=== PATIENT | male | born 1965 | race Caucasian/White ===

== ENCOUNTER 2024-10-12 10:36 | Emergency (ER) | payer OTHER, SELFPAY ==
[2024-10-12 10:49] VITALS: BP 142/92; PULSE 76; RESP 22; TEMP 36.3; O2SAT 96
--- NOTE | 2024-10-12 10:55 | CRLHL7_ITS ---
For Patients: As a result of the Cures Act, medical imaging exams and procedure reports are released immediately into your electronic medical record. You may view this report before your referring provider. If you have questions, please contact your health care provider. Indication: Cut tip of left middle finger with a saw Technique: Three views left 3rd digit Comparison: None Findings/Impression: Amputation of the majority of the tuft of the left 3rd digit as well as amputation of the medial aspect of the soft tissues of the left 3rd digit tuft. Fracture plane extends near the articular surface although not clearly involving the DIP joint. Debris near the skin surface. Dictated by Mazin Hodges MD @ 10/12/2024 12:25:38 PM (Electronically Signed)
--- OUTSIDE RECORDS SUMMARY | 2024-10-12 11:41 | XMS_ITS | Encounter Summary ---
[facility] Organization [facility] Address [address] [place] [address] Care Team Providers Care Garnett Mechanic Name Role Phone Greg Tinoco MD Primary Care Provider +1 [phone] Encounter Details Date Type Department Care Team (Late st Contact Info) Description 03/12/2017 Correspondence [facility] Radiology [address] [place] [address] Radiology, Provider MRI SAFETY SHEET AND COMPATIBILITY FORM Social History Tobacco Use Types Packs/Day Years Used Date Smoking Tobacco: Never Smokeless Tobacco: Never Alcohol Use Standard Drinks/Week Comments No 0 (1 standard drink = 0.6 oz pur e alcohol) Sex and Gender Information Value Date Recorded Sex Assigned at Not on file Legal Sex Male 4:08 AM CDT Gender Identity Not on file Sexual Orientation Not on file 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 Not on file Not on file documented as of this encounter Plan of Treatment Upcoming Encounters Date Type Department Care Team (Late st Contact Info) Description 04/19/2025 8:50 AM ASSISTANT WOMEN'S SOCCER COACH Appointment [facility] [place] [address] [place] [phone] Latonia Santos, [facility] [address] [place], [place] [phone] documented as of this encounter Visit Diagnoses Not on filedocumented in this encounter Additional Health Concerns Infection Onset Date Last Indicated Resolved Time R/O COVID19 04/07/2022 04/07/2022 04/07/2022 4:01 PM ASSISTANT WOMEN'S SOCCER COACH documented as of this encounter Care Teams Garnett Mechanic Relationship Specialty Start Date End Date Greg Tinoco MD [address] [place] [address] PCP - General Internal Medicine 12/07/16 documented as of this encounter
--- NOTE | 2024-10-12 11:42 | ED.UPPEXIN ---
HPI - Extremity Injury (Upper) General Date Seen: 10/12/24 Chief Complaint: Extremity Pain/Injury, Upper Stated Complaint: Lost 1/2 finger tip Time Seen by Provider: 10/12/24 10:55 Source: patient Mode of arrival: ambulatory Limitations: no limitations History of Present Illness HPI narrative: Patient is a 60-year-old male presenting to the emergency department for an injury to his right distal middle finger. He states he was using a rotary saw when it caught his finger. This happened shortly prior to arrival. States he has a baseline tremor to that hand. Denies any other injuries. Is in quite a bit of pain at this time. Is having difficulty relaxing. Is not on any blood thinners. Related Data Home Medications ?Medication ?Instructions ?Recorded ?Confirmed evolocumab 140 mg/mL subcutaneous mg subcut 10/12/24 10/12/24 pen injector (Pete Atkins) fluticasone propionate 50 intranasal 10/12/24 10/12/24 mcg/actuation nasal spray,suspension losartan 50 mg tablet 50 mg PO BID 10/12/24 10/12/24 pantoprazole 40 mg tablet,delayed 40 mg PO DAILY 10/12/24 10/12/24 release pantoprazole in 0.9% sod chlor IV 10/12/24 sildenafil (pulm.hypertension) 20 20 mg PO DAILY 10/12/24 10/12/24 mg tablet Previous Rx's ?Medication ?Instructions ?Recorded cephalexin 500 mg capsule 500 mg PO QID #20 caps 10/12/24 oxycodone 5 mg tablet 5 mg PO Q6H PRN pain #12 tabs 10/12/24 Allergies Allergy/AdvReac Type Severity Reaction Status Date / Time simvastatin AdvReac pain Verified 10/12/24 10:59 Review of Systems Narrative: Pertinent systems reviewed and were negative unless stated in HPI PFSH PFSH Medical History (Updated 10/12/24 @ 12:58 by Deepak Ricks DO) Traumatic brain injury ?S06.9XAA - Unspecified intracranial injury with loss of consciousness status unknown, initial encounter (ICD-10) Degenerative disc disease Lumbar radiculopathy ?M54.16 - Radiculopathy, lumbar region (ICD-10) Dilated cardiomyopathy ?I42.0 - Dilated cardiomyopathy (ICD-10) Atherosclerosis ?I70.90 - Unspecified atherosclerosis (ICD-10) Pseudophakia ?Z96.1 - Presence of intraocular lens (ICD-10) Glaucoma ?H40.9 - Unspecified glaucoma (ICD-10) 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 - Epithelial (juvenile) corneal dystrophy, unspecified eye (ICD-10) PVD (posterior vitreous detachment), right eye ?H43.811 - Vitreous degeneration, right eye (ICD-10) Macular pucker ?H35.379 - Puckering of macula, unspecified eye (ICD-10) Nuclear sclerosis ?H25.10 - Age-related nuclear cataract, unspecified eye (ICD-10) Myotonic dystrophy, 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 - Myotonic muscular dystrophy (ICD-10) Obstructive sleep apnea ?G47.33 - Obstructive sleep apnea (adult) (pediatric) (ICD-10) Hyperlipidemia ?E78.5 - Hyperlipidemia, unspecified (ICD-10) Acid reflux ?K21.9 - Gastro-esophageal reflux disease without esophagitis (ICD-10) Surgical History (Updated 10/12/24 @ 12:58 by Lazara Acevedo ~ TIP BANDING MACHINE OPERATOR, TIP BANDING MACHINE OPERATOR) Cataract ?H26.9 - Unspecified cataract (ICD-10) History of appendectomy ?Z90.49 - Acquired absence of other specified parts of digestive tract (ICD-10) H/O spinal fusion ?Z98.1 - Arthrodesis status (ICD-10) Exam Narrative: Exam Narrative: Const: Well-nourished, Well-developed, in moderate distress Eyes: PERRL, no conjunctival injection, and symmetrical lids HENT: Atraumatic external nose and ears. Moist mucous membranes. MSK:Extremities w/o deformity, Normal Active ROM Skin: Large amount of avulsed skin and soft tissue clearly seen to the distal right 3rd finger. Unable to clearly see of any bone is involved. Neuro: Normal Muscle tone, No focal neurological deficits. Psych: Awake, Alert, & Oriented x3. Appropriate mood and affect. Const: Vital Signs, click to edit/add: Vital Signs - 24 hr 10/12/24 10:49 Temperature 97.4 F L Pulse Rate [Pulse Oximeter] 76 Respiratory Rate 22 Blood Pressure [Ri ght Upper Arm] 142/92 H Pulse Oximetry 96 Oxygen Delivery Me thod Room Air Course Vital Signs Vital signs: Initial Vital Signs Temperature 97.4 F L 10/12/24 10:49 Temperature Source Temporal Artery Scan 10/12/24 10:49 Pulse Rate 76 10/12/24 10:49 Pulse Rhythm Regular 10/12/24 10:49 Respiratory Rate 22 10/12/24 10:49 Blood Pressure 142/92 H 10/12/24 10:49 Blood Pressure Mean 108 H 10/12/24 10:49 Blood Pressure Position Sitting 10/12/24 10:49 Pulse Oximetry 96 10/12/24 10:49 Oxygen Delivery Method Room Air 10/12/24 10:49 Vital Signs Temperature 97.4 F L 10/12/24 10:49 Pulse Rate 76 10/12/24 10:49 Respiratory Rate 22 10/12/24 10:49 Blood Pressure 142/92 H 10/12/24 10:49 Pulse Oximetry 96 10/12/24 10:49 Oxygen Delivery Method Room Air 10/12/24 10:49 Temperature 97.4 F L 10/12/24 10:49 Pulse Rate 76 10/12/24 10:49 Respiratory Rate 22 10/12/24 10:49 Blood Pressure 142/92 H 10/12/24 10:49 Pulse Oximetry 96 10/12/24 10:49 Oxygen Delivery Method Room Air 10/12/24 10:49 Medications Administered Medications: Discontinued Medications Generic Name Dose Route Start Last Admin Trade Name Freq PRN Reason Stop Dose Admin Cefazolin Sodium 2 gm 10/12/24 11:33 10/12/24 12:05 Cefazolin 1 Gm Inj IVP 10/12/24 11:34 2 gm ONCE ONE Administration Diphtheria/Tetanus/Acell Pertussis 0.5 ml 10/12/24 11:49 10/12/24 12:47 Tetanus/Diphth/Pertussis 0.5 Ml Syringe IM 10/12/24 11:50 0.5 ml .ONCE ONE Administration MDM - Extremity Injury (Upper) MDM Narrative Medical decision making narrative: Patient is a 59-year-old male presenting for an injury to his right distal phalanx of his 3rd finger. On physical exam I cannot say for certain if there is bone involvement but due to the amount of soft tissue removed it is most likely involving the bone. I will do a digital nerve block to help with his pain. Use combination of lidocaine and benzocaine. I did speak to orthopedics who came to evaluate the patient. At this time patient does not want surgery months see if he can safely finger so patient will follow-up outpatient. Was recommended to place a big bulky dressing on with xeroform or other not adhesive dressing. He will follow-up in a couple days with Orthopedics. Will give the patient a dose of Ancef and sent him home with Keflex. Also send him home with oxycodone for pain control Imaging Data Finger x-ray: Attestation: I have reviewed the pertinent imaging results. Radiologist's impression: Amputation of the majority of the tuft of the left 3rd digit as well as amputation of the medial aspect of the soft tissues of the left 3rd digit tuft. Fracture plane extends near the articular surface although not clearly involving the DIP joint. Debris near the skin surface. Dictated by Mazin Hodges MD @ 10/12/2024 12:25:38 PM Discharge Plan Discharge Clinical Impression: Avulsion of fingertip Patient Disposition: Home, Self-Care Condition: Stable Additional Instructions: Follow up appointment is scheduled at the [facility] on October 13 with a 1:20pm arrival time. If you have any questions or need to reschedule, please call [phone]. [facility] [address] [place] [address] Use Tylenol oxycodone for pain. I recommend this time to schedule the pain medication to stay ahead of the pain. Stay away from NSAIDs as they can increased bleeding. I do also recommend taking the antibiotics as prescribed. Return to emergency department for new or worsening symptoms Prescriptions: New cephalexin 500 mg capsule 500 mg PO QID Qty: 20 0RF oxycodone 5 mg tablet 5 mg PO Q6H PRN (Reason: pain) Qty: 12 0RF No Action losartan 50 mg tablet 50 mg PO BID pantoprazole 40 mg tablet,delayed release (DR/EC) 40 mg PO DAILY fluticasone propionate 50 mcg/actuation spray,suspension intranasal Patient Comments: [NO ORIGINAL SIG] sildenafil (pulm.hypertension) 20 mg tablet 20 mg PO DAILY Repatha SureClick 140 mg/mL pen injector subcut pantoprazole in 0.9% sod chlor IV Follow Up/Referrals: Provider,Not a Local [Primary Care Provider, Family Practice] [facility] Alone [facility]: [facility] Inst[facility]
--- OUTSIDE RECORDS SUMMARY | 2024-10-12 11:42 | XMS_ITS | Encounter Summary ---
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 Not on file Not on file documented as of this encounter Plan of Treatment Upcoming Encounters Date Type Department Care Team (Late st Contact Info) Description 04/19/2025 8:50 AM RENEWALS MANAGER Appointment [facility] Dental [facility] [address] [place] [phone] Latonia Santos, [facility] [address] [place], [place] [phone] documented as of this encounter Visit Diagnoses Not on filedocumented in this encounter Additional Health Concerns Infection Onset Date Last Indicated Resolved Time R/O COVID19 04/07/2022 04/07/2022 04/07/2022 4:01 PM RENEWALS MANAGER documented as of this encounter Care Teams Rebar Bender Relationship Specialty Start Date End Date Greg Tinoco MD [address] [place] [address] PCP - General Internal Medicine 12/07/16 documented as of this encounter
--- OUTSIDE RECORDS SUMMARY | 2024-10-12 11:42 | XMS_ITS | Encounter Summary ---
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 Not on file Not on file documented as of this encounter Plan of Treatment Upcoming Encounters Date Type Department Care Team (Late st Contact Info) Description 04/19/2025 8:50 AM SWIMMING POOL PLASTERER HELPER Appointment [facility] [place] [address] [place] [phone] Latonia aSntos, [facility] [address] [place], [place] [phone] documented as of this encounter Visit Diagnoses Not on filedocumented in this encounter Additional Health Concerns Infection Onset Date Last Indicated Resolved Time R/O COVID19 04/07/2022 04/07/2022 04/07/2022 4:01 PM SWIMMING POOL PLASTERER HELPER documented as of this encounter Care Teams Rag Boiler Relationship Specialty Start Date End Date Greg Tinoco MD [address] [place] [address] PCP - General Internal Medicine 12/07/16 documented as of this encounter
--- OUTSIDE RECORDS SUMMARY | 2024-10-12 11:42 | XMS_ITS | Encounter Summary ---
Author Organization [facility] Address [address] [place] [address] Care Team Providers Care Acetone Recovery Worker Name Role Phone Greg Tinoco MD Primary Care Provider +1 [phone] Encounter Details Date Type Department Care Team (Latest Contact Info) Description 05/10/1995 Orders Only Destin Nowak [facility] [address] [facility], [address] Social History Tobacco Use Types Packs/Day Years Used Date Smoking Tobacco: Never Assessed Sex and Gender Information Value Date Recorded Sex Assigned at Not on file Legal Sex Male 4:08 AM CDT Gender Identity Not on file Sexual Orientation Not on file documented as of this encounter Plan of Treatment Upcoming Encounters Date Type Department Care Team (Late st Contact Info) Description 04/19/2025 8:50 AM FOOD SERVICE LEAD Appointment [facility] Dental [facility] [address] [place] [phone] [facility] [address] [place] [address] documented as of this encounter Visit Diagnoses Not on filedocumented in this encounter Additional Health Concerns Infection Onset Date Last Indicated Resolved Time R/O COVID19 04/07/2022 04/07/2022 04/07/2022 4:01 PM FOOD SERVICE LEAD documented as of this encounter Care Teams Acetone Recovery Worker Relationship Specialty Start Date End Date Greg Tinoco MD [address] [place] [address] PCP - General Internal Medicine 12/07/16 documented as of this encounter
--- OUTSIDE RECORDS SUMMARY | 2024-10-12 11:42 | XMS_ITS | Encounter Summary ---
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 [address] [place], [place] [phone] documented as of this encounter Visit Diagnoses Not on filedocumented in this encounter Additional Health Concerns Infection Onset Date Last Indicated Resolved Time R/O COVID19 04/07/2022 04/07/2022 04/07/2022 4:01 PM CLOSET ORGANIZER documented as of this encounter Care Teams Executive Communications Manager Relationship Specialty Start Date End Date Greg Tinoco MD [address] [place] [address] PCP - General Internal Medicine 12/07/16 documented as of this encounter
--- OUTSIDE RECORDS SUMMARY | 2024-10-12 11:42 | XMS_ITS | Clinical Summary ---
Author Organization [place] Address [address] [place] [address]. [place] [address] Care Team Providers Care Tar Worker Name Role Phone Greg Tinoco MD Primary Care Provider +1 [phone] Allergies No known active allergies Medications aspirin (ASA) 81 MG chewable tablet Take 81 mg by mouth every morning Active losartan (COZAAR) 100 MG tablet Take 100 mg by mouth At Bedtime Active fluticasone (FLONASE) 50 MCG/ACT nasal spray [place] 2 sprays into both nostrils daily Active vitamin D3 (CHOLECALCIFERO L) 2000 units tablet Take 2,000 Units by mouth every morning Active vitamin C (ASCORBIC ACID) 1000 MG TABS Take 1,000 mg by mouth every morning Active Calcium Citrate (CITRACAL OR) Take 2 tablets by mouth every morning Active pantoprazole (PROTONIX) 20 MG EC tablet Take 20 mg by mouth every morning Active oxyCODONE (ROXICODONE) 5 MG tabletIndicatio ns:Degenerative lumbar disc Take 1-2 tablets (5-10 mg) by mouth every 3 hours as needed 40 tablet 08/06/2018 Active Active Problems Problem Noted Date Diagnosed Date Degenerative lumbar disc 08/05/2018 Lumbar radiculopathy 06/13/2018 Dilated cardiomyopathy 05/15/2017 Atherosclerosis of [place] co ronary artery of [place] heart without angina pectoris 08/15/2016 Overview (08/05/2018): Overview: Based on cardiac calcium score >95th%ile Lung nodules 08/15/2016 Overview (08/05/2018): Overview: Right lung, 6 mm found incidentally with CT calcium score. 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 Awaiting calcium score, CV 10 year risk ~12.5% Esophageal reflux 12/22/2004 Immunizations Immunization Administration Dates Next Due Influenza Vaccine 18-64 (Flublok) 08/06/2018() TDAP Vaccine (Adacel) 07/20/2017 Social History Tobacco Use Types Packs/Day Years Used Date Smoking Tobacco: Never Smokeless Tobacco: Never Alcohol Use Standard Drinks/Week Comments No 0 (1 standard drink = 0.6 oz pur e alcohol) AUDIT-C Answer Date Recorded Frequency of Alcohol Consumption Never 08/05/2018 Average Number of Drinks Not on file 019 Frequency of Binge Drinking Not on file 07/12 Sex and Gender Information Value Date Recorded Sex Assigned at Not on file Legal Sex Male 4:16 AM TRAINING PROFESSIONAL Gender Identity Not on file Sexual Orientation Not on file Last Filed Vital Signs Vital Sign Reading Time Taken Comments Blood Pressure 107/52 08/06/2018 11:18 AM CDT Pulse 65 08/05/2018 10:16 PM CDT Temperature 36.9 C (98.5 F) 08/06/2018 11:18 AM CDT Respiratory Rate 16 08/06/2018 11:18 AM CDT Oxygen Saturation 94% 08/06/2018 11:18 AM CDT Inhaled Oxygen Concentration - - Weight 81.2 kg (179 lb) 08/05/2018 9:48 AM CDT Height 182.9 cm (6') 08/05/2018 9:48 AM CDT Body Mass Index 24.28 08/05/2018 9:48 AM CDT Plan of Treatment Not on file Medical Devices Implanted Type Area Outreach Professional Device Identifier Shelf Expiration Date Model / Serial / Lot Graft Bone Infuse Bmp [id number] Implanted:Qty: 1 on 08/05/2018 by Gabriel Rivero MD at [facility] Bone/Tis rustam/Biol ogic N/A: Spine Lumbar [employer] 07/11/2019 [id number] / / [id number] Synfix Evolution Spacer Med/10.5mm6' Implanted:Qty: 1 on 08/05/2018 by Gabriel Rivero MD at [facility] N/A: Spine Lumbar 08/10/2026 [id number] / / [id number] Synfix Evoulution Fine Tip Screw 25mm Implanted:Qty: 1 on 08/05/2018 by Gabriel Rivero MD at [facility] N/A: Spine Lumbar 05/12/2028 [id number] .02S / / [id number] Synfix Evolution Fine Tip Screw 25mm Implanted:Qty: 1 on 08/05/2018 by Gabriel Rivero MD at [facility] N/A: Spine Lumbar 05/12/2028 [id number] .02S / / [id number] Insurance * Guarantor: STEPHANIE EMERSON Account Type Relation to Patient Date of Phone Billing Address Personal/Family [address] [place] [address] [facility] Advance Directives For more information, please contact: [phone] * Full Code (Latest Code Status on File) Date Activated Date Inactivated Comments 08/05/2018 3:07 PM 08/06/2018 3:57 PM Question Answer Comments Code status determined by: Discussion with patie nt/legal decision maker Care Teams Tar Worker Relationship Specialty Start Date End Date Greg Tinoco MD [address] [place] [address] PCP - General Student in organized health care education/training program 07/24/18
--- OUTSIDE RECORDS SUMMARY | 2024-10-12 11:42 | XMS_ITS | Encounter Summary ---
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 Not on file Not on file documented as of this encounter Plan of Treatment Upcoming Encounters Date Type Department Care Team (Late Contact Info) Description 04/19/2025 8:50 AM PATIENT TRANSITION SPECIALIST Appointment [facility] Dental [facility] [address] [place] [phone] Latonia Santos, [facility] [address] [place] [address] documented as of this encounter Visit Diagnoses Not on filedocumented in this encounter Additional Health Concerns Infection Onset Date Last Indicated Resolved Time R/O COVID19 04/07/2022 04/07/2022 04/07/2022 4:01 PM PATIENT TRANSITION SPECIALIST documented as of this encounter Care Teams Permanent Mold Supervisor Relationship Specialty Start Date End Date Greg Tinoco MD [address] [address] PCP - General Internal Medicine 12/07/16 documented as of this encounter
--- OUTSIDE RECORDS SUMMARY | 2024-10-12 11:42 | XMS_ITS | Encounter Summary ---
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 on file Not on file documented as of this encounter Plan of Treatment Upcoming Encounters Date Type Department Care Team (Late st Contact Info) Description 04/19/2025 8:50 AM STEEL BARREL REAMER Appointment [facility] [address] [place] [address] [facility] [address] [place], [place] [phone] documented as of this encounter Visit Diagnoses Not on filedocumented in this encounter Additional Health Concerns Infection Onset Date Last Indicated Resolved Time R/O COVID19 04/07/2022 04/07/2022 04/07/2022 4:01 PM STEEL BARREL REAMER documented as of this encounter Care Teams Assistant Kitchen Manager Relationship Specialty Start Date End Date Greg Tinoco MD [address] [place] [address] PCP - General Internal Medicine 12/07/16 documented as of this encounter
--- OUTSIDE RECORDS SUMMARY | 2024-10-12 11:42 | XMS_ITS | Encounter Summary ---
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 on file Not on file documented as of this encounter Plan of Treatment Upcoming Encounters Date Type Department Care Team (Late st Contact Info) Description 04/19/2025 8:50 AM HOSPICE CLINICAL MARKETER Appointment [facility] Dental [facility] [address] [place] [phone] Latonia Santos, [facility] [address] [place], [place] [phone] documented as of this encounter Visit Diagnoses Not on filedocumented in this encounter Additional Health Concerns Infection Onset Date Last Indicated Resolved Time R/O COVID19 04/07/2022 04/07/2022 04/07/2022 4:01 PM HOSPICE CLINICAL MARKETER documented as of this encounter Care Teams Line Assigner Relationship Specialty Start Date End Date Greg Tinoco MD [address] [place] [address] PCP - General Internal Medicine 12/07/16 documented as of this encounter
--- OUTSIDE RECORDS SUMMARY | 2024-10-12 11:42 | XMS_ITS | Encounter Summary ---
Author Organization [facility] Address [address] [place] [address] Care Team Providers Care Factory Manager Name Role Phone Greg Tinoco MD Primary Care Provider +1 -[phone] Encounter Details Date Type Department Care Team (Latest Contact Info) Description 05/13/1995 Orders Only Ace Mcmullen MD [address] [place], [place] [address] Social History Tobacco Use Types Packs/Day Years [...] st Contact Info) Description 04/19/2025 8:50 AM LEGAL DIRECTOR Appointment [facility] [place] [address] [place] [phone] [facility] [address] [place] [address] documented as of this encounter Visit Diagnoses Not on filedocumented in this encounter Additional Health Concerns Infection Onset Date Last Indicated Resolved Time R/O COVID19 04/07/2022 04/07/2022 04/07/2022 4:01 PM LEGAL DIRECTOR documented as of this encounter Care Teams Factory Manager Relationship Specialty Start Date End Date Greg Tinoco MD [address] [place] [address] PCP - General Internal Medicine 12/07/16 documented as of this encounter
--- OUTSIDE RECORDS SUMMARY | 2024-10-12 11:42 | XMS_ITS | Encounter Summary ---
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 on file Not on file documented as of this encounter Plan of Treatment Upcoming Encounters Date Type Department Care Team (Late st Contact Info) Description 04/19/2025 8:50 AM HARM REDUCTION WORKER Appointment [facility] [address] [place] [address] Latonia Santos, [facility] [address] [place], [place] [phone] documented as of this encounter Visit Diagnoses Not on filedocumented in this encounter Additional Health Concerns Infection Onset Date Last Indicated Resolved Time R/O COVID19 04/07/2022 04/07/2022 04/07/2022 4:01 PM HARM REDUCTION WORKER documented as of this encounter Care Teams Brim Edge Trimmer Relationship Specialty Start Date End Date Greg Tinoco MD [address] [place] [address] PCP - General Internal Medicine 12/07/16 documented as of this encounter
--- OUTSIDE RECORDS SUMMARY | 2024-10-12 11:42 | XMS_ITS | Encounter Summary ---
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 on file Not on file documented as of this encounter Plan of Treatment Upcoming Encounters Date Type Department Care Team (Late st Contact Info) Description 04/19/2025 8:50 AM CIRCULATOR Appointment [facility] [place] [address] [place] [address] Latonia Santos, [facility] [address] [place], [place] [phone] documented as of this encounter Visit Diagnoses Not on filedocumented in this encounter Additional Health Concerns Infection Onset Date Last Indicated Resolved Time R/O COVID19 04/07/2022 04/07/2022 04/07/2022 4:01 PM CIRCULATOR documented as of this encounter Care Teams Rotary Soil Stabilizer Relationship Specialty Start Date End Date Greg Tinoco MD [address] [place] [address] PCP - General Internal Medicine 12/07/16 documented as of this encounter
--- OUTSIDE RECORDS SUMMARY | 2024-10-12 11:42 | XMS_ITS | Encounter Summary ---
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 Not on file Not on file documented as of this encounter Plan of Treatment Upcoming Encounters Date Type Department Care Team (Late st Contact Info) Description 04/19/2025 8:50 AM INFANTRY INDIRECT FIRE CREWMEMBER Appointment [facility] [place] [address] [place] [phone] Latonia Santos, [facility] [address] [place], [place] [phone] documented as of this encounter Visit Diagnoses Not on filedocumented in this encounter Additional Health Concerns Infection Onset Date Last Indicated Resolved Time R/O COVID19 04/07/2022 04/07/2022 04/07/2022 4:01 PM INFANTRY INDIRECT FIRE CREWMEMBER documented as of this encounter Care Teams Meteorological Equipment Repairer Relationship Specialty Start Date End Date Greg Tinoco MD [address] [place] [address] PCP - General Internal Medicine 12/07/16 documented as of this encounter
--- OUTSIDE RECORDS SUMMARY | 2024-10-12 11:42 | XMS_ITS | Encounter Summary ---
Author Organization Counts include 234 beds at the [facility] Address [address] [place] [address] Care Team Providers Care Wood Heel Flap Rubber Name Role Phone Greg Tinoco MD Primary Care Provider +1 -[phone] Encounter Details Date Type Department Care Team (Latest Contact Info) Description 05/11/1995 Orders Only Pierre Craft Social History Tobacco Use Types Packs/Day Years [...] st Contact Info) Description 04/19/2025 8:50 AM CRAFT CENTER DIRECTOR Appointment Counts include 234 beds at the [facility] Dental [facility] [address] [place] [phone] [facility] [address] [place], [place] [phone] documented as of this encounter Visit Diagnoses Not on filedocumented in this encounter Additional Health Concerns Infection Onset Date Last Indicated Resolved Time R/O COVID19 04/07/2022 04/07/2022 04/07/2022 4:01 PM CRAFT CENTER DIRECTOR documented as of this encounter Care Teams Wood Heel Flap Rubber Relationship Specialty Start Date End Date Grge Tinoco MD [address] [facility] [address] PCP - General Internal Medicine 12/07/16 documented as of this encounter
--- OUTSIDE RECORDS SUMMARY | 2024-10-12 11:42 | XMS_ITS | Encounter Summary ---
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 file Not on file documented as of this encounter Plan of Treatment Upcoming Encounters Date Type Department Care Team (Late st Contact Info) Description 04/19/2025 8:50 AM SPEARER Appointment [facility] [place] [address] [place] [phone] Latonia Santos, [facility] [address] [place], [place] [phone] documented as of this encounter Visit Diagnoses Not on filedocumented in this encounter Additional Health Concerns Infection Onset Date Last Indicated Resolved Time R/O COVID19 04/07/2022 04/07/2022 04/07/2022 4:01 PM SPEARER documented as of this encounter Care Teams Purse Maker Relationship Specialty Start Date End Date Greg Tinoco MD [address] [place] [address] PCP - General Internal Medicine 12/07/16 documented as of this encounter
--- OUTSIDE RECORDS SUMMARY | 2024-10-12 11:42 | XMS_ITS | Encounter Summary ---
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 [address] [facility] [place] [address] documented as of this encounter Visit Diagnoses Not on filedocumented in this encounter Additional Health Concerns Infection Onset Date Last Indicated Resolved Time R/O COVID19 04/07/2022 04/07/2022 04/07/2022 4:01 PM CLEANER LABORATORY EQUIPMENT documented as of this encounter Care Teams Tattoo Technician Relationship Specialty Start Date End Date Greg Tinoco MD [address] [place] [address] PCP - General Internal Medicine 12/07/16 documented as of this encounter
--- OUTSIDE RECORDS SUMMARY | 2024-10-12 11:42 | XMS_ITS | Encounter Summary ---
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 [address] [place] [address] documented as of this encounter Visit Diagnoses Not on filedocumented in this encounter Additional Health Concerns Infection Onset Date Last Indicated Resolved Time R/O COVID19 04/07/2022 04/07/2022 04/07/2022 4:01 PM RECORDS MANAGEMENT ANALYST documented as of this encounter Care Teams Professional Services Specialist Relationship Specialty Start Date End Date Greg Tinoco MD [address] [place] [address] PCP - General Internal Medicine 12/07/16 documented as of this encounter
--- OUTSIDE RECORDS SUMMARY | 2024-10-12 11:42 | XMS_ITS | Encounter Summary ---
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 Not on file Not on file documented as of this encounter Plan of Treatment Upcoming Encounters Date Type Department Care Team (Late st Contact Info) Description 04/19/2025 8:50 AM BRANCH CUSTOMER SERVICE REPRESENTATIVE Appointment [facility] Dental [facility] [address] [place] [phone] Latonia Santos, [facility] [address] [place], [place] [phone] documented as of this encounter Visit Diagnoses Not on filedocumented in this encounter Additional Health Concerns Infection Onset Date Last Indicated Resolved Time R/O COVID19 04/07/2022 04/07/2022 04/07/2022 4:01 PM BRANCH CUSTOMER SERVICE REPRESENTATIVE documented as of this encounter Care Teams Nurse Care Manager Relationship Specialty Start Date End Date Greg Tinoco MD [address] [place] [address] PCP - General Internal Medicine 12/07/16 documented as of this encounter
--- OUTSIDE RECORDS SUMMARY | 2024-10-12 11:42 | XMS_ITS | Encounter Summary ---
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 [address] [place] [address] [facility] [address] [place], [place] [phone] documented as of this encounter Visit Diagnoses Not on filedocumented in this encounter Additional Health Concerns Infection Onset Date Last Indicated Resolved Time R/O COVID19 04/07/2022 04/07/2022 04/07/2022 4:01 PM HELPER MARBLE FINISHER documented as of this encounter Care Teams Trimmer Machine Operator Relationship Specialty Start Date End Date Greg Tinoco MD [address] [place] [address] PCP - General Internal Medicine 12/07/16 documented as of this encounter
--- OUTSIDE RECORDS SUMMARY | 2024-10-12 11:42 | XMS_ITS | Encounter Summary ---
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 file Not on file documented as of this encounter Plan of Treatment Upcoming Encounters Date Type Department Care Team (Late st Contact Info) Description 04/19/2025 8:50 AM SIGNAL CIRCUIT DESIGNER Appointment [facility] Dental [facility] [address] [place] [address] [facility] [address] [place], [place] [phone] documented as of this encounter Visit Diagnoses Not on filedocumented in this encounter Additional Health Concerns Infection Onset Date Last Indicated Resolved Time R/O COVID19 04/07/2022 04/07/2022 04/07/2022 4:01 PM SIGNAL CIRCUIT DESIGNER documented as of this encounter Care Teams L D Rn Relationship Specialty Start Date End Date Greg Tinoco MD [address] [place] [address] PCP - General Internal Medicine 12/07/16 documented as of this encounter
--- OUTSIDE RECORDS SUMMARY | 2024-10-12 11:42 | XMS_ITS | Encounter Summary ---
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 file Not on file documented as of this encounter Plan of Treatment Upcoming Encounters Date Type Department Care Team (Late st Contact Info) Description 04/19/2025 8:50 AM CLIENT SERVICE ASSOCIATE Appointment [facility] [place] [address] [place] [phone] Latonia Santos, [facility] [address] [place], [place] [phone] documented as of this encounter Visit Diagnoses Not on filedocumented in this encounter Additional Health Concerns Infection Onset Date Last Indicated Resolved Time R/O COVID19 04/07/2022 04/07/2022 04/07/2022 4:01 PM CLIENT SERVICE ASSOCIATE documented as of this encounter Care Teams Community Outreach Manager Relationship Specialty Start Date End Date Greg Tinoco MD [address] [place] [address] PCP - General Internal Medicine 12/07/16 documented as of this encounter
--- OUTSIDE RECORDS SUMMARY | 2024-10-12 11:42 | XMS_ITS | Encounter Summary ---
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 file Not on file documented as of this encounter Plan of Treatment Upcoming Encounters Date Type Department Care Team (Late st Contact Info) Description 04/19/2025 8:50 AM STUDENT DEAN Appointment [facility] Dental [facility] [address] [place] [address] Latonia Santos, [facility] [address] [facility] [place] [address] documented as of this encounter Visit Diagnoses Not on filedocumented in this encounter Additional Health Concerns Infection Onset Date Last Indicated Resolved Time R/O COVID19 04/07/2022 04/07/2022 04/07/2022 4:01 PM STUDENT DEAN documented as of this encounter Care Teams Ointment Mill Tender Relationship Specialty Start Date End Date Greg Tinoco MD [address] [place] [address] PCP - General Internal Medicine 12/07/16 documented as of this encounter
--- OUTSIDE RECORDS SUMMARY | 2024-10-12 11:42 | XMS_ITS | Encounter Summary ---
Author Organization [facility] Address [address] [place] [address] Care Team Providers Care Precision Lens Grinder Name Role Phone Greg Tinoco MD Primary Care Provider +1 -[phone] Encounter Details Date Type Department Care Team (Late st Contact Info) Description 10/05/2011 Consent for Procedure/Treatme nt [facility] Department RH INFORMED CONSENT FOR SLEEP/AUDIO/VIDEO Social History Tobacco Use Types Packs/Day Years Used Date Smoking Tobacco: Never Smokeless Tobacco: Never Alcohol Use Standard Drinks/Week Comments Not Asked 0 (1 standard drink = 0.6 oz pur e alcohol) Sex and Gender Information Value Date Recorded Sex Assigned at Not on file Legal Sex Male 4:08 AM CDT Gender Identity Not on file Sexual Orientation Not on file 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 on file Not on file documented as of this encounter Progress Notes * [facility], PROVIDER - 10/05/2011 12:00 AM CDT documented in this encounter Plan of Treatment Upcoming Encounters Date Type Department Care Team (Late st Contact Info) Description 04/19/2025 8:50 AM LUSTERER Appointment [facility] Dental [facility] [address] [place] [address] Latonia Santos, [facility] [address] [place] [address] [place] [address] documented as of this encounter Visit Diagnoses Not on filedocumented in this encounter Additional Health Concerns Infection Onset Date Last Indicated Resolved Time R/O COVID19 04/07/2022 04/07/2022 04/07/2022 4:01 PM LUSTERER documented as of this encounter Care Teams Precision Lens Grinder Relationship Specialty Start Date End Date Greg Tinoco MD [address] [place] [address] PCP - General Internal Medicine 12/07/16 documented as of this encounter
--- OUTSIDE RECORDS SUMMARY | 2024-10-12 11:42 | XMS_ITS | Encounter Summary ---
Author Organization [facility] Address [address] [place] [address] Care Team Providers Care Boat Motor Mechanic Name Role Phone Greg Tinoco MD Primary Care Provider +1 -[phone] Encounter Details Date Type Department Care Team (Latest Contact Info) Description 05/21/1995 Orders Only Dilan Cook MD Social History Tobacco Use Types Packs/Day Years [...] st Contact Info) Description 04/19/2025 8:50 AM PORTABLE ROUTER OPERATOR Appointment [facility] Dental [facility] [address] [place] [phone] [facility] [address] [place], [place] [phone] documented as of this encounter Visit Diagnoses Not on filedocumented in this encounter Additional Health Concerns Infection Onset Date Last Indicated Resolved Time R/O COVID19 04/07/2022 04/07/2022 04/07/2022 4:01 PM PORTABLE ROUTER OPERATOR documented as of this encounter Care Teams Boat Motor Mechanic Relationship Specialty Start Date End Date Greg Tinoco MD [address] [address] PCP - General Internal Medicine 12/07/16 documented as of this encounter
--- OUTSIDE RECORDS SUMMARY | 2024-10-12 11:42 | XMS_ITS | Encounter Summary ---
Author Organization [facility] Address [address] [place] [address] Care Team Providers Care Marketing Developer Name Role Phone Greg Tinoco MD Primary Care Provider +1 -[phone] Encounter Details Date Type Department Care Team (Late st Contact Info) Description 11/15/2014 Emergency Room External to [facility], Provider SORE THROAT Social History Tobacco Use Types Packs/Day Years Used Date Smoking Tobacco: Never Smokeless Tobacco: Never Alcohol Use Standard Drinks/Week Comments Yes 0.8 (1 standard drink = 0.6 oz p ure alcohol) Sex and Gender Information Value Date Recorded Sex Assigned at Not on file Legal Sex Male 4:08 AM CDT Gender Identity Not on file Sexual Orientation Not on file 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 file Not on file documented as of this encounter Plan of Treatment Upcoming Encounters Date Type Department Care Team (Late st Contact Info) Description 04/19/2025 8:50 AM SMELLER Appointment [facility] Dental [facility] [address] [place] [phone] Latonia Santos, [facility] [address] [place], [place] [phone] documented as of this encounter Visit Diagnoses Not on filedocumented in this encounter Additional Health Concerns Infection Onset Date Last Indicated Resolved Time R/O COVID19 04/07/2022 04/07/2022 04/07/2022 4:01 PM SMELLER documented as of this encounter Care Teams Marketing Developer Relationship Specialty Start Date End Date Greg Tinoco MD [address] [place] [address] PCP - General Internal Medicine 12/07/16 documented as of this encounter
--- OUTSIDE RECORDS SUMMARY | 2024-10-12 11:42 | XMS_ITS | Encounter Summary ---
Author Organization [facility] Address [address] [place] [address] Care Team Providers Care Extraction Supervisor Name Role Phone Greg Tinoco MD Primary Care Provider +1 -[phone] Encounter Details Date Type Department Care Team (Latest Contact Info) Description 11/27/1999 Orders Only Brooks Beckman MD Social History Tobacco Use Types Packs/Day [...] st Contact Info) Description 04/19/2025 8:50 AM RETAIL PARTS PROFESSIONAL Appointment [facility] Dental [facility] [address] [place] [phone] [facility] [address] [place], [place] [phone] documented as of this encounter Visit Diagnoses Not on filedocumented in this encounter Additional Health Concerns Infection Onset Date Last Indicated Resolved Time R/O COVID19 04/07/2022 04/07/2022 04/07/2022 4:01 PM RETAIL PARTS PROFESSIONAL documented as of this encounter Care Teams Extraction Supervisor Relationship Specialty Start Date End Date Greg Tinoco MD [address] [address] PCP - General Internal Medicine 12/07/16 documented as of this encounter
--- OUTSIDE RECORDS SUMMARY | 2024-10-12 11:42 | XMS_ITS | Encounter Summary ---
Author Organization [facility] Address [address] [place] [address] Care Team Providers Care Bottle Gauger Name Role Phone Greg Tinoco MD Primary Care Provider +1 -[phone] Encounter Details Date Type Department Care Team (Latest Contact Info) Description 08/01/2015 Consent for Procedure/Treatm ent Ophthalmology at [facility] [address] 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 Not on file Not on file documented as of this encounter Plan of Treatment Upcoming Encounters Date Type Department Care Team (Late st Contact Info) Description 04/19/2025 8:50 AM GREY STOCK RECORDER Appointment [facility] [address] [place] [phone] Latonia Santos, [facility] [address] [place], [place] [phone] documented as of this encounter Visit Diagnoses Not on filedocumented in this encounter Additional Health Concerns Infection Onset Date Last Indicated Resolved Time R/O COVID19 04/07/2022 04/07/2022 04/07/2022 4:01 PM GREY STOCK RECORDER documented as of this encounter Care Teams Bottle Gauger Relationship Specialty Start Date End Date Greg Tinoco MD [address] [place] [address] PCP - General Internal Medicine 12/07/16 documented as of this encounter
--- OUTSIDE RECORDS SUMMARY | 2024-10-12 11:42 | XMS_ITS | Encounter Summary ---
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 Not on file Not on file documented as of this encounter Plan of Treatment Upcoming Encounters Date Type Department Care Team (Late st Contact Info) Description 04/19/2025 8:50 AM TOOL AND DIE MAKER/DESIGNER Appointment [facility] Dental [facility] [address] [place] [phone] Latonia Santos, [facility] [address] [place], [place] [phone] documented as of this encounter Visit Diagnoses Not on filedocumented in this encounter Additional Health Concerns Infection Onset Date Last Indicated Resolved Time R/O COVID19 04/07/2022 04/07/2022 04/07/2022 4:01 PM TOOL AND DIE MAKER/DESIGNER documented as of this encounter Care Teams Tractor Trailer Driver Relationship Specialty Start Date End Date Greg Tinoco MD [address] [place] [address] PCP - General Internal Medicine 12/07/16 documented as of this encounter
--- OUTSIDE RECORDS SUMMARY | 2024-10-12 11:42 | XMS_ITS | Clinical Summary ---
Author Organization [employer] [facility] Address [address] [place] [id number] Care Team Providers Care Banana Ripening Room Supervisor Name Role Phone Pcp, No Primary Care Provider Unavailabl e Allergies No known active allergies Medications pantoprazole (PROTONIX) 40 mg delayed-release tablet Take 40 mg by mouth once daily. Active moxifloxacin (VIGAMOX) 0.5 % ophthalmic solution Place 1 Drop into right eye 4 times daily. 3 mL 08/04/2015 12:21 PM CDT 08/04/2015 Active prednisoLONE acetate 1% ophthalmic (ECONOPRED PLUS, PRED FORTE, OMNIPRED) suspension Place 1 Drop into right eye 4 times daily. SHAKE WELL. 5 mL 08/04/2015 12:21 PM CDT 08/04/2015 Active ketorolac 0.5 % ophthalmic (ACULAR) solution Place 1 Drop into right eye 4 times daily. 5 mL 08/04/2015 12:21 PM CDT 08/04/2015 Active erythromycin ophthalmic ointment 0.5% Place 1 Strip into right eye at bedtime. 3.5 g 08/04/2015 12:21 PM CDT 08/05/2015 Active losartan (COZAAR) 50 mg tabletIndication s:Hypercholester emia Take 1 tablet by mouth once daily. 0 03/20/2018 Active aspirin 325 mg tablet Take 81 mg by mouth. Active fluticasone (50 mcg per actuation) nasal solution (FLONASE) 2 Sprays. 09/17/2016 Active Active Problems No known active problems Social History Tobacco Use Types Packs/Day Years Used Date Smoking Tobacco: Never Smokeless Tobacco: Never Alcohol Use Standard Drinks/Week Comments Yes 0 (1 standard drink = 0.6 oz pur e alcohol) Very little Sex and Gender Information Value Date Recorded Sex Assigned at Not on file Legal Sex Male 7:20 PM CDT Gender Identity Not on file Sexual Orientation Not on file Obstetrics History Last Filed Vital Signs Vital Sign Reading Time Taken Comments Blood Pressure 142/84 08/04/2015 12:15 PM CDT Pulse 84 08/04/2015 12:15 PM CDT Temperature 36.5 C (97.7 F) 08/04/2015 9:08 AM CDT Respiratory Rate 16 08/04/2015 12:15 PM CDT Oxygen Saturation 96% 08/04/2015 12:15 PM CDT Inhaled Oxygen Concentration - - Weight 84.4 kg (186 lb) 08/03/2015 7:05 AM CDT Height 182.2 cm (5' 11.73) 08/03/2015 7:05 AM C DT Body Mass Index 25.41 08/03/2015 7:05 AM CDT Plan of Treatment Health Maintenance Due Date Last Done Comments Tdap 1974 Depression screening for age 12+ 1975 HIV for age 15-65 1978 BMI (ht and wt on same day) for age 18+ 1981 Hepatitis C screening for ag e 18-79 1981 Tetanus booster 1983 Colonoscopy through age 75 2008 Lipids for age 45-75 2008 Pneumococcal series for age 50+ (1 of 1 - PCV) 2013 Zoster (shingles) series for age 50+ (1 of 2) 2013 COVID-19 vaccine series (3 - 2023- season) 2024 08/24/2020, 08/03/2020 Influenza Vaccine (Season Ended) 2025 RSV vaccine for adults or (1 - 1-dose 75+ series) 2038 Hepatitis B series for 19+ Aged Out N o longer eligible based on patient's age to complete this topic Medical Devices Implanted Type Area Shipping And Receiving Clerk Device Identifier Shelf Expiration Date Model / Serial / Lot Lens Iol 19.[employer] - [id number] Implanted:Qty: 1 on 08/04/2015 by Brook Krueger MD at [facility] Right: Eye [employer] 11/10/2019 [id number] / [id number] / Insurance [employer] Advance Directives * Full Code (Latest Code Status on File) Date Activated Date Inactivated Comments 08/03/2015 8:43 AM 08/04/2015 2:35 PM * Full Code Date Activated Date Inactivated Comments 08/03/2015 8:21 AM 08/03/2015 8:43 AM Care Teams Banana Ripening Room Supervisor Relationship Specialty Start Date End Date Pcp, No . PCP - General 12/21/14
--- OUTSIDE RECORDS SUMMARY | 2024-10-12 11:42 | XMS_ITS | Encounter Summary ---
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 Not on file documented as of this encounter Plan of Treatment Upcoming Encounters Date Type Department Care Team (Late st Contact Info) Description 04/19/2025 8:50 AM MILITARY POLICE OFFICER Appointment [facility] [address] [place] [phone] Latonia Santos, [facility] [address] [place], [place] [phone] documented as of this encounter Visit Diagnoses Not on filedocumented in this encounter Additional Health Concerns Infection Onset Date Last Indicated Resolved Time R/O COVID19 04/07/2022 04/07/2022 04/07/2022 4:01 PM MILITARY POLICE OFFICER documented as of this encounter Care Teams Delivery Assistant Relationship Specialty Start Date End Date Greg Tinoco MD [address] [place] [address] PCP - General Internal Medicine 12/07/16 documented as of this encounter
--- OUTSIDE RECORDS SUMMARY | 2024-10-12 11:42 | XMS_ITS | Encounter Summary ---
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 Not on file Not on file documented as of this encounter Progress Notes * Inactive, Provider - 11/09/2011 12:00 AM CDT documented in this encounter Plan of Treatment Upcoming Encounters Date Type Department Care Team (Late Contact Info) Description 04/19/2025 8:50 AM AEGIS CONSOLE OPERATOR TRACK Appointment [facility] Dental [facility] [address] [place] [phone] Latonia Santos, [facility] [address] [place], [place] [phone] documented as of this encounter Visit Diagnoses Not on filedocumented in this encounter Additional Health Concerns Infection Onset Date Last Indicated Resolved Time R/O COVID19 04/07/2022 04/07/2022 04/07/2022 4:01 PM AEGIS CONSOLE OPERATOR TRACK documented as of this encounter Care Teams Coding Quality Analyst Relationship Specialty Start Date End Date Greg Tinooc MD [address] [address] PCP - General Internal Medicine 12/07/16 documented as of this encounter
--- OUTSIDE RECORDS SUMMARY | 2024-10-12 11:42 | XMS_ITS | Encounter Summary ---
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 Not on file Not on file documented as of this encounter Progress Notes * Inactive, Provider - 11/09/2011 12:00 AM CDT documented in this encounter Plan of Treatment Upcoming Encounters Date Type Department Care Team (Late st Contact Info) Description 04/19/2025 8:50 AM REGIONAL COMPANY TRUCK DRIVER Appointment [facility] Dental [facility] [address] [place] [address] Latonia Santos, [facility] [address] [place] [address] documented as of this encounter Visit Diagnoses Not on filedocumented in this encounter Additional Health Concerns Infection Onset Date Last Indicated Resolved Time R/O COVID19 04/07/2022 04/07/2022 04/07/2022 4:01 PM REGIONAL COMPANY TRUCK DRIVER documented as of this encounter Care Teams Lines Tender Relationship Specialty Start Date End Date Greg Tinoco MD [address] [place] [address] PCP - General Internal Medicine 12/07/16 documented as of this encounter
--- OUTSIDE RECORDS SUMMARY | 2024-10-12 11:42 | XMS_ITS | Encounter Summary ---
Author Organization [facility] Address [address] [address] Care Team Providers Care Adventure Education Teacher Name Role Phone Greg Tinoco MD Primary Care Provider [phone] [phone] Encounter Details Date Type Department Care Team (Late Contact Info) Description 03/30/2014 Correspondence [facility] [address] [place] [address] Aide Cook MD [address] [place] [address] PRIOR AUTHORIZATION FORM Social History [...] Industry Job Start Date Job End Date [employer] Not on file Not on file Not on file documented as of this encounter Plan of Treatment Upcoming Encounters Date Type Department Care Team (Late st Contact Info) Description 04/19/2025 8:50 AM FEED RESEARCH TECHNICIAN Appointment [facility] Dental [facility] [address] [place] [address] Latonia Santos, [facility] [address] [facility] [place] [address] documented as of this encounter Visit Diagnoses Not on filedocumented in this encounter Additional Health Concerns Infection Onset Date Last Indicated Resolved Time R/O COVID19 04/07/2022 04/07/2022 04/07/2022 4:01 PM FEED RESEARCH TECHNICIAN documented as of this encounter Care Teams Adventure Education Teacher Relationship Specialty Start Date End Date Greg Tinoco MD [address] [place] [address] PCP - General Internal Medicine 12/07/16 documented as of this encounter
--- OUTSIDE RECORDS SUMMARY | 2024-10-12 11:42 | XMS_ITS | Encounter Summary ---
Author Organization [facility] Address [address] [place] [address] Care Team Providers Care Client Technical Professional Name Role Phone Greg Tinoco MD Primary Care Provider [phone] Encounter Details Date Type Department Care Team (Latest Contact Info) Description 09/21/1996 Orders Only Brooks Beckman MD Social History [...] st Contact Info) Description 04/19/2025 8:50 AM SERVER SOFTWARE ENGINEER Appointment [facility] Dental [facility] [address] [place] [phone] [facility] [address] [place], [place] [phone] documented as of this encounter Visit Diagnoses Not on filedocumented in this encounter Additional Health Concerns Infection Onset Date Last Indicated Resolved Time R/O COVID19 04/07/2022 04/07/2022 04/07/2022 4:01 PM SERVER SOFTWARE ENGINEER documented as of this encounter Care Teams Client Technical Professional Relationship Specialty Start Date End Date Greg Tinoco MD [address] [address] PCP - General Internal Medicine 12/07/16 documented as of this encounter
--- OUTSIDE RECORDS SUMMARY | 2024-10-12 11:42 | XMS_ITS | Encounter Summary ---
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 [address] [place], [place] [phone] documented as of this encounter Visit Diagnoses Not on filedocumented in this encounter Additional Health Concerns Infection Onset Date Last Indicated Resolved Time R/O COVID19 04/07/2022 04/07/2022 04/07/2022 4:01 PM CORE PLACER documented as of this encounter Care Teams Thermal Cutting Machine Operator Relationship Specialty Start Date End Date Greg Tinoco MD [address] [place] [address] PCP - General Internal Medicine 12/07/16 documented as of this encounter
--- OUTSIDE RECORDS SUMMARY | 2024-10-12 11:43 | XMS_ITS | Clinical Summary ---
Author Organization [employer] Address [address] [place] [address] Care Team Providers Care Inspector Rubber Stamp [employer] Name Role Phone Greg Tinoco MD Primary Care Provider [phone] Source Comments You are receiving this document as you are listed as the primary care provider,follow-up provider, or the patient has been referred to you for consultation.This is in compliance with the Medicare andMedicaid EHR Incentive Program,which states Providers who transition their patient to another setting of careor provider of care or refers their patient to another provider of care shouldprovide summary care record for each transition of care or referral. [employer] Allergies Active Allergy Reactions Criticality Noted Date Comments Statins Muscle Aches/Weakness 01/08/2019 Myotonic dystrophy contributes, intolerant to several statins. Has baseline elevated CK level too Medications * This document contains information received from the source organization and may not represent a complete record from that organization. CALCIUM CARBONATE OR Active Ascorbic Acid (VITAMIN C OR) Activ e drug not in computer THC Tablet - Take 10 MG by mouth every night at bedtime Active Ascorbic Acid (VITAMIN C OR) Take 1 Tablet by mouth daily. Active aspirin 81 MG chewable tablet Chew and swallow 1 Tablet (81 mg) by mouth daily. Active Calcium Carb-Cholecalcife rol (CALCIUM 500 + D OR) Take 1 Tablet by mouth daily. Active cholecalciferol (VITAMIN D3) 25 MCG (1000 UT) tablet Take 1 Tablet (1,000 Units) by mouth daily. Active Evolocumab (REPATHA SURECLICK) 140 MG/ML SOAJIndications:A therosclerosis of [place] coronary artery of [place] heart without angina pectoris (HRC),Hyperlipide jr, unspecified hyperlipidemia type (HRC) Inject 1 mL (140 mg) subcutaneously every 14 days. 6 Each [address] (PROTONIX) 40 MG tabletIndications :Gastroesophageal reflux disease without esophagitis TAKE 1 TABLET BY MOUTH EVERY DAY 90 Tablet 2 025 Active sildenafil (REVATIO) 20 MG tablet TAKE 2-4 TABLETS 30-60 MINUTES PRIOR TO SEXUAL INTERCOURSE 90 Tablet 2 025 Active fluticasone propionate (FLONASE) 50 MCG/ACT nasal solutionIndicatio ns:Post-nasal drip PLACE 2 SPRAYS INTO BOTH NOSTRILS DAILY AT BEDTIME - GENERIC FOR FLONASE 48 g 2 025 Active losartan (COZAAR) 50 MG tabletIndications :White coat syndrome with diagnosis of hypertension (HRC),Dilated cardiomyopathy (HRC),Atheroscler osis of [place] coronary artery of [place] heart without angina pectoris (HRC) TAKE 1 TABLET (50 MG) BY MOUTH TWICE A DAY 180 Tablet 025 Active losartan (COZAAR) 50 MG tablet TAKE 1 TABLET (50 MG) BY MOUTH TWICE A DAY 180 Tablet 025 2024 Discontinued Active Problems Problem Noted Date Diagnosed Date Colon cancer screening 03/31/2024 Overview (03/31/2024): Colonoscopy completed 03/2024. Repeat in 10 years with propofol. Post-nasal drip 06/21/2023 TBI (traumatic brain injury) 04/08/2022 Impacted cerumen of left ear 02/09/2022 Insomnia 02/09/2022 Transaminitis 11/15/2021 Erectile dysfunction 09/30/2020 Adverse effect of antihyperl ipidemic and antiarteriosclerotic drugs, subsequent encounter 01/08/2019 Overview (04/04/2021): See Allergies for additional details. Degenerative lumbar disc 08/05/2018 White coat syndrome with diagnosis of hypertensi on 07/24/2018 Lumbar radiculopathy 06/13/2018 Dilated cardiomyopathy 05/15/2017 Overview (05/29/2019): cardiac MRI in February 2017, which showed preserved EF of 52% with a mildly enlarged left ventricle, mild left ventricular hypertrophy and moderately dilated right and left atrium. He is on losartan per Cardiology recommendation. Atherosclerosis of [place] co ronary artery of [place] heart without angina pectoris 08/15/2016 Overview (05/29/2019): Based on cardiac calcium score >95th%ile. He had a nuclear stress test in January 2017 which was negative for evidence of ischemia (low risk result, excellent exercise tolerance), but did show mild to moderately reduced EF of 41%. Subsequently underwent cardiac MRI in February 2017, which showed preserved EF of 52% with a mildly enlarged left ventricle, mild left ventricular hypertrophy and moderately dilated right and left atrium. He is on losartan per Cardiology recommendation. Prolonged Q-T interval on ECG 08/10/2016 Overview (08/10/2016): Mild (<500). 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 Overview (06/21/2023): Risk for muscle issues over time and multidisciplinary team is recommended for issues that arise although myotonic dystrophy type 2 has milder effect Cardiac conduction disturbances and tachy arrhythmias occurred to a lesser extent in myotonic dystrophy type 2 At increased risk for respiratory complications and sleep-related breathing abnormalities but which again are less common in type 2 Higher risk for cataracts Dysphagia and nutrition issues are more common in type 1 Endocrinopathies are more of a risk in type 2 myotonic dystrophy including insulin resistance and diabetes, thyroid abnormalities, primary hypogonadism and erectile dysfunction Anesthesia risks are increased and anesthesia care is more complicated and requires preparation and detailed planning to limit risks (for example- short-acting agents such as propofol are recommended and avoidance of long-acting sedatives and then succinylcholine should be avoided due to the potential to cause diffuse muscle contraction and in severe cases trismus, laryngospasm and the inability to manage the airway) JAMES (obstructive sleep apnea) 01/04/2012 Hyperlipidemia 11/26/2008 Overview (08/13/2016): Would need close monitoring of CK if statin started. Awaiting calcium score, CV 10 year risk ~12.5% Esophageal reflux 12/22/2004 Resolved Problems Problem Noted Date Diagnosed Date Resolved Date Lung nodules 08/15/2016 01/08/2019 Overview (01/08/2019): Right lung, 6 mm found incidentally with CT calcium score. Follow up should be 12 months per Sissy per my assessment but will refer to lung nodule clinic--> repeat CT stable and so no further follow up needed Sleep disorder 07/02/2011 07/30/2017 Unilateral inguinal hernia 10/24/2009 0 07/30/2017 Overview (01/19/2015): ICD 10 Major depressive disorder, s master episode, mild 10/24/2009 08/10/2016 Encounters Date Type Department Care Team Description 10/09/2024 Refill [facility] [address] [place] [address] Greg Tinoco MD Refill (losartan (COZAAR) 50 MG tablet [Pharmacy Med Name: LOSARTAN POTASSIUM 50 MG TAB]) 07/30/2024 Refill [facility] [address] [place] [address] Greg Tinoco MD Refill (fluticasone propionate (FLONASE) 50 MCG/ACT nasal solution [Pharmacy Med Name: FLUTICASONE PROPIONATE 50 MCG/ACT SUSP]) 07/12/2024 Refill [facility] [address] [place] [address] Greg Tinoco MD Refill (sildenafil (REVATIO) 20 MG tablet [Pharmacy Med Name: SILDENAFIL 20 MG TABLET]) 07/12/2024 Refill [facility] [address] [place] [address] Greg Tinoco MD Refill (sildenafil (REVATIO) 20 MG tablet [Pharmacy Med Name: SILDENAFIL 20 MG TABLET]) 07/12/2024 Refill [facility] [address] [place] [address] Greg Tinoco MD Refill (pantoprazole DR (PROTONIX) 40 MG tablet [Pharmacy Med Name: PANTOPRAZOLE SOD DR 40 MG TAB]) from Last 3 Months Immunizations Immunization Administration Dates Next Due Flu Vac (3+ yrs) 03/07/2006,04/02/2002, 1 Fluzone Qiv Multidose Vial 0 .25 (6-35 Mos) 04/14/2014 [id number] 04/27/2009 H1n1 Miv Novartis 4+ Yr Trac e Preservative (Injected) 04/27/2009 HepA Adult (19+ yrs) 09/17/2016,03/09/2016 HepB Adult (Engerix-B, 20+ y rs, 3 dose series) 05/03/1997,10/09/1996,09/09/1996 Influenza (Flucelvax), Prese rv Free QIV 06/17/2023 Influenza IIV4 (Quadrivalent ) 0.5mL (99392) 03/06/2021,01/20/2020,02/09/2019,2015,03/29/2015,06/19/2013 Influenza Vaccine (3+years) ([facility]) 02/29/2012,03/24/2007 Influenza Vaccine QIV 3+ yrs 100% Pres Free ([facility]) 04/14/2014 Influenza ccIIV3 6 months+ (Flucelvax) 03/30/2024 Influenza, Unspecified Formulation 02/16/2017 Pfizer Monovalent 12+ Purple Top 08/24/2020,/2 08/2020 Td 09/09/1996 Tdap 04/07/2022,,07/20/2017,2006 Typhoid (Typhim Vi, IM) 03/09/2016 Family History Medical History Relation Name Comments Coronary Artery Disease Father 5v b ypass at 79 Hyperlipidemia Father Cerebrovascular Disease Mother Lucia hein Diabetes Mother Lucia hein High Cholesterol Mother Lucia hein Hyperlipidemia Mother Lucia hein Hypertension Mother Lucia hein Other Mother Lucia hein myotonic dystro phy Stroke Mother Lucia hein [place] Mother Lucia hein Bipolar Disorder Maternal Aunt Coronary Artery Disease Other 2 Pat uncle triple bypass Stroke Paternal Uncle Hein Relation Name Status Comments Father Alive Mother Lucia hein stroke- age 70s Brother 1 Alive Brother 2 Alive Maternal Aunt Maternal Grandfather Maternal Grandmother Other 1 Alive Other 2 Paternal Grandfather Paternal Grandmother Paternal Uncle Hein Sister 1 Alive Sister 2 Alive Sister 3 Alive Son 1 Alive Son 2 Alive Son 3 Alive Social History Tobacco Use Types Packs/Day Years Used Date Smoking Tobacco: Never Passive Smoke Exposure: Past Smokeless Tobacco: Never Tobacco Cessation:Counseling Given: Not Answered Alcohol Use Standard Drinks/Week Comments No 0 (1 standard drink = 0.6 oz pur e alcohol) PHQ-2 Answer Date Recorded PHQ-2 Score 0 06/17/2023 Sex and Gender Information Value Date Recorded Sex Assigned at Not on file Legal Sex Male 4:08 AM CDT Gender Identity Not on file Sexual Orientation Not on file 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 Not on file Not on file Not on file Last Filed Vital Signs Vital Sign Reading Time Taken Comments Blood Pressure 182/75 04/28/2024 2:58 PM FINANCIAL INTERN Pulse 56 04/28/2024 2:58 PM FINANCIAL INTERN Temperature 36.8 C (98.3 F) 04/08/2022 7:48 AM FINANCIAL INTERN Respiratory Rate 16 03/19/2024 9:30 AM FINANCIAL INTERN Oxygen Saturation 100% 03/19/2024 9:30 AM FINANCIAL INTERN Inhaled Oxygen Concentration - - Weight 84.2 kg (185 lb 9.6 oz) 04/28/2024 2:58 P M FINANCIAL INTERN Height 182.9 cm (6') 03/19/2024 8:08 AM FINANCIAL INTERN Body Mass Index 25.17 03/19/2024 8:08 AM FINANCIAL INTERN Plan of Treatment Upcoming Encounters Date Type Department Care Team (Late st Contact Info) Description 04/19/2025 8:50 AM FINANCIAL INTERN Appointment [facility] [address] [place] [address] Latonia Santos, [facility] [address] [place] [address] Health Maintenance Due Date Last Done Comments Pneumococcal Vaccine 50+ Yrs (1 of 2 - PCV) 1982 Zoster/Shingles Vaccine (1 of 2) 2013 Adult Preventive Visit 09/28/2021 , 01/08/2019, 08/08/2016, Additional history exists RSV Vaccine (1 - Risk 60-74 years 1-dose series) 2023 COVID-19 Vaccine ( - season) 2024 08/24/2020, 08/03/2020 PSA Screening Discussion 06/17/2024 06/17/2023, 11/2013 Diabetes Screening- (based on age and BMI) 05/18/2025 05/18/2022, 02/09/2022, 01/20/2020, Additional history exists Cholesterol 06/17/2028 06/17/2023, 01/13, 04/15/2020, Additional history exists DTaP/Tdap/Td Vaccine (5 - Tdap) 04/07/2032 04/07/2022, 04/07/2022, 07/20/2017, Additional history exists Colonoscopy 03/19/2034 03/19/2024, 07/12, 07/31/2013 HepB Vaccine Completed 05/03/1997, 09/12, 09/09/1996 HIV Screening (Preventive Services) Completed 08/13/2016 Hep C Screening (Preventive Services) Completed 08/13/2016 HepA Vaccine Completed 09/17/2016, 03/09/2016 Influenza Vaccine Completed 03/30/2024, , 03/06/2021, Additional history exists Hib Vaccine Aged Out No longer eligi ble based on patient's age to complete this topic IPV (Polio) Vaccine Aged Out No longe r eligible based on patient's age to complete this topic MCV4 Vaccine Aged Out No longer eligi ble based on patient's age to complete this topic Meningococcal B Vaccine Aged Out No l onger eligible based on patient's age to complete this topic Procedures Procedure Name Priority Date/Time Associated Diagnosis Comments COLONOSCOPY SCREENING Routine 03/19/2024 8:32 AM FINANCIAL INTERN Screen for colon cancer PROSTATIC SPECIFIC ANTIGEN(SCREEN) Routine 06/17/2023 11:05 AM FINANCIAL INTERN Lower urinary tract symptoms (LUTS) Screening for prostate cancer CHOLESTEROL, TOTAL AND HDL Routine 06/17/2023 11:05 AM FINANCIAL INTERN Hyperlipidemia, unspecified hyperlipidemia type (HRC) HGB A1C Routine 02/09/2022 8:40 AM CDT Hyperlipidemia, unspecified hyperlipidemia type Atherosclerosis of [place] coronary artery of [place] heart without angina pectoris Dilated cardiomyopathy (HRC) Essential hypertension Myotonic dystrophy, type 2 (HRC) HEPATITIS C ANTIBODY, WITH REFLEX Routine 08/13/2016 7:41 AM CDT Need for hepatitis C screening test HIV 1/2 AG/AB 4TH GEN Routine 08/13/2016 7:39 AM CDT Screening for HIV (human immunodeficiency virus) from Last 3 Months or Most Recently Relevant to Health Maintenance Results * Colonoscopy Screening (03/19/2024 8:32 AM FINANCIAL INTERN) Anatomical Region Laterality Modality Other 03/19/2024 8:32 AM FINANCIAL INTERN Narrative 03/19/2024 8:32 AM FINANCIAL INTERN Patient Name: Ash Hein Procedure Date: 03/19/2024 8:32 AM Date of : 1965 Admit Type: Outpatient Age: 58 Note Status: Finalized Attending MD: Cesar Tovar MD, Procedure: Colonoscopy Indications: Screening for colon cancer: Family history of colorectal cancer in distant relative (maternal grandfather in his 60s), Last colonoscopy: July 2013 ([facility]). Providers: Cesar Tovar MD, Mary Grace Torrez RN Referring MD: Cesar Tovar MD Medicines: Midazolam 6 mg IV, Fentanyl 200 micrograms IV, Diphenhydramine 50 mg IV Complications: No immediate complications. Procedure: After I obtained informed consent, the scope was passed under direct vision. Throughout the procedure, the patient's blood pressure, pulse, and oxygen saturations were monitored continuously. The [id number] was introduced through the anus and advanced to the terminal ileum, with identification of the appendiceal orifice and IC valve. The colonoscopy was performed without difficulty. The patient tolerated the procedure well. The quality of the bowel preparation was good. Findings: The perianal and digital rectal examinations were normal. The terminal ileum appeared normal. Retroflexion in the right colon was performed. A 4 mm polyp was found in the ascending colon. The polyp was sessile. The polyp was removed with a cold snare. Resection and retrieval were complete. Verification of patient identification for the specimen was done. Estimated blood loss was minimal. The exam was otherwise normal throughout the examined colon. Moderate Sedation: Moderate (conscious) sedation was administered by the nurse and supervised by the endoscopist. The following parameters were monitored: oxygen saturation, heart rate, blood pressure, and response to care. Total physician intraservice time was 15 minutes. This time is the duration from the initial medication administration until the corporate development intern assists with initial maneuvers (biopsy / polypectomy / etc.), or if no maneuvers are performed, until the endoscopist leaves the room. Impression: - The examined portion of the ileum was normal. - One 4 mm polyp in the ascending colon, removed with a cold snare. Resected and retrieved. Recommendation: - Discharge patient to home. - Await pathology results. - Repeat colonoscopy for surveillance based on pathology results. - Patient's sedation for a repeat study will require Anesthesia staff assistance. - The findings and recommendations were discussed with the patient. Procedure Code(s): --- Professional --- 71653, Colonoscopy, flexible; with removal of tumor(s), polyp(s), or other lesion(s) by snare technique G0500, Moderate sedation services provided by the same physician or other qualified health health care analyst performing a gastrointestinal endoscopic service that sedation supports, requiring the presence of an independent trained observer to assist in the monitoring of the patient's level of consciousness and physiological status; initial 15 minutes of intra-service time; patient age 5 years or older (additional time may be reported with 11243, as appropriate) Diagnosis Code(s): --- Professional --- Z12.11, Encounter for screening for malignant neoplasm of colon Z80.0, Family history of malignant neoplasm of digestive organs D12.2, Benign neoplasm of ascending colon CPT copyright 2021 [employer]. All rights reserved. The codes documented in this report are preliminary and upon linen grader review may be revised to meet current compliance requirements. Cesar Tovar MD 03/19/2024 9:16:31 AM Number of Addenda: 0 Note Initiated On: 03/19/2024 8:32 AM Endoscopy Report Procedure Note Cesar Tovar MD - 03/19/2024 Patient Name: Ash Hein Procedure Date: 03/19/2024 8:32 AM Date of : 1965 Admit Type: Outpatient Age: 58 Note Status: Finalized Attending MD: Cesar Tovar MD, Procedure: Colonoscopy Indications: Screening for colon cancer: Family history of colorectal cancer in distant relative (maternal grandfather in his 60s), Last colonoscopy: July 2013 ([employer]). Providers: Cesar Tovar MD, Mary Grace Torrez RN Referring MD: Cesar Tovar MD Medicines: Midazolam 6 mg IV, Fentanyl 200 micrograms IV, Diphenhydramine 50 mg IV Complications: No immediate complications. Procedure: After I obtained informed consent, the scope was passed under direct vision. Throughout the procedure, the patient's blood pressure, pulse, and oxygen saturations were monitored continuously. The [id number] was introduced through the anus and advanced to the terminal ileum, with identification of the appendiceal orifice and IC valve. The colonoscopy was performed without difficulty. The patient tolerated the procedure well. The quality of the bowel preparation was good. Findings: The perianal and digital rectal examinations were normal. The terminal ileum appeared normal. Retroflexion in the right colon was performed. A 4 mm polyp was found in the ascending colon. The polyp was sessile. The polyp was removed with a cold snare. Resection and retrieval were complete. Verification of patient identification for the specimen was done. Estimated blood loss was minimal. The exam was otherwise normal throughout the examined colon. Moderate Sedation: Moderate (conscious) sedation was administered by the nurse and supervised by the endoscopist. The following parameters were monitored: oxygen saturation, heart rate, blood pressure, and response to care. Total physician intraservice time was 15 minutes. This time is the duration from the initial medication administration until the corporate development intern assists with initial maneuvers (biopsy / polypectomy / etc.), or if no maneuvers are performed, until the endoscopist leaves the room. Impression: - The examined portion of the ileum was normal. - One 4 mm polyp in the ascending colon, removed with a cold snare. Resected and retrieved. Recommendation: - Discharge patient to home. - Await pathology results. - Repeat colonoscopy for surveillance based on pathology results. - Patient's sedation for a repeat study will require Anesthesia staff assistance. - The findings and recommendations were discussed with the patient. Procedure Code(s): --- Professional --- 89779, Colonoscopy, flexible; with removal of tumor(s), polyp(s), or other lesion(s) by snare technique G0500, Moderate sedation services provided by the same physician or other qualified health health care analyst performing a gastrointestinal endoscopic service that sedation supports, requiring the presence of an independent trained observer to assist in the monitoring of the patient's level of consciousness and physiological status; initial 15 minutes of intra-service time; patient age 5 years or older (additional time may be reported with 43064, as appropriate) Diagnosis Code(s): --- Professional --- Z12.11, Encounter for screening for malignant neoplasm of colon Z80.0, Family history of malignant neoplasm of digestive organs D12.2, Benign neoplasm of ascending colon CPT copyright 2021 [employer]. All rights reserved. The codes documented in this report are preliminary and upon linen grader review may be revised to meet current compliance requirements. Cesar Tovar MD 03/19/2024 9:16:31 AM Number of Addenda: 0 Note Initiated On: 03/19/2024 8:32 AM Endoscopy Report us Cesar Tovar MD ET GI PROCEDURE ORDERABLES Fin al Result * Prostatic Specific Antigen (Screen) (06/17/2023 11:05 AM FINANCIAL INTERN) Prostatic Specific Antigen 0.8 0.0 - 4.0 ng/mL 06/17/2023 3:25 PM FINANCIAL INTERN [facility] Blood Venipuncture / Unknown 06/17/2023 11:05 AM FINANCIAL INTERN 06/17/2023 11:05 AM FINANCIAL INTERN Narrative [facility] - 06/17/2023 3:25 PM FINANCIAL INTERN The [employer] PSA Chemiluminescent immunoassay is used. Results obtained with different test methods or kits cannot be used interchangeably. us Greg Tinoco MD LAB_1 Final Res ult Performing Organization Address [facility] Co de Phone Number [facility] [address] * Cholesterol, Total and HDL (06/17/2023 11:05 AM FINANCIAL INTERN) Cholesterol 130 0 - 199 mg/dL 06/17/2023 3:17 PM FINANCIAL INTERN [facility] HDL Cholesterol 43 >=40 mg/dL 06/17/2023 3:17 PM [facility] Non HDL Chol, Calculated 87 <=159 mg/dL 06/17/2023 3:17 PM [facility] Blood Venipuncture / Unknown 06/17/2023 11:05 AM FINANCIAL INTERN 06/17/2023 11:05 AM FINANCIAL INTERN Greg Tinoco MD LAB_1 Final Res ult Performing Organization Address [facility] de Phone Number [facility] [address] * Hgb A1C (02/09/2022 8:40 AM CDT) Hemoglobin A1C 5.1 <=5.6 % 02/09/2022 1:18 PM CDT [facility] Blood Venipuncture / Unknown 02/09/2022 8:40 AM CDT 02/09/2022 8:40 AM CDT Greg Tinoco MD LAB_1 Final Res ult Performing Organization Address [facility]/State/ZIP Co de Phone Number [facility] [address] [address], [facility] [phone] * HEP C recommended for patients born between [id number] (08/13/2016 7:41 AM CDT) Anti-HCV Negative (Non Reactive) [facility] Comment: Antibodies to HCV not detected. Does not exclude the possibility of exposure to HCV. 08/13/2016 7:41 AM CDT 08/13/2016 7:47 AM CDT [facility] - 08/13/2016 1:26 PM CDT Performed at [facility] [place], [address] [address] us Greg Tinoco MD LAB_1 Final Res ult Performing Organization Address [facility]/ZIP Co de Phone Number [address] [address] * HIV 1/2 Ag/Ab 4th Generation (08/13/2016 7:39 AM CDT) Pathologist [facility] [place] HIV 1/2 AG/AB 4thGEN Negative (Non Reactive) [facility] 08/13/2016 7:39 AM CDT 08/13/2016 7:52 AM CDT [facility] - 08/13/2016 8:37 AM CDT Performed at [facility], [address] [place] [address] us Greg Tinoco MD LAB_1 Final Res ult Performing Organization Address City/[facility]/ZIP Co de Phone Number [address] [address] from Last 3 Months or Most Recently Relevant to Health Maintenance Insurance SELF INSURED HP SELF INSURED [employer] COMM [facility] DENTAL Advance Directives * Full Code (Latest Code Status on File) Date Activated Date Inactivated Comments 04/07/2022 10:27 PM 04/08/2022 2:44 PM Care Teams Inspector Rubber Stamp Die Relationship Specialty Start Date End Date Greg Tinoco MD [address] [address] PCP - General Internal Medicine 12/07/16
--- OUTSIDE RECORDS SUMMARY | 2024-10-12 11:43 | XMS_ITS | Encounter Summary ---
Author Organization [facility] Address [address] [place] [address] Care Team Providers Care Director Cardiovascular Name Role Phone Greg Tinoco MD Primary Care Provider [phone] Reason for Visit * Reason Comments Refill losartan (COZAAR) 50 MG tablet [Pharmacy Med Name: LOSARTAN POTASSIUM 50 MG TAB] Encounter Details Date Type Department Care Team (Late st Contact Info) Description 10/09/2024 Refill [facility] Internal Medicine and Pediatrics [place] [address] 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 Greg Booth MD Medicine-Pediatrics * Fay Zavaleta RN - 10/09/2024 4:05 PM CDT Further Assistance Needed on Refill from Clinician RN reviewed. Patient due for Lab(s). Cr and K are overdue (performed 16 months ago, required every 12 months) Review pended order for accuracy and sign if appropriate, Clinician to order lab(s) and document ifpatient is due for lab only visit or office visit and lab, and Route to Front Line to schedule appointment Requested Prescriptions Pending Prescriptions Disp Refills losartan (COZAAR) 50 MG tablet [Pharmacy Med Name: LOSARTAN POTASSIUM 50 MG TAB] 180 Tablet 0 Sig: TAKE 1 TABLET (50 MG) BY MOUTH TWICE A DAY documented in this encounter Plan of Treatment Upcoming Encounters Date Type Department Care Team (Late st Contact Info) Description 04/19/2025 8:50 AM COMMERCIAL LINES UNDERWRITER Appointment [facility] [place] [address] [place] [address] [facility] [address] [place], [place] [phone] Scheduled Orders Name Type Priority Associated Diagnoses Orde r Schedule ALT (SGPT) Lab Routine Hyperlipidemia, unspecified hyperlipidemia type (HRC) Myotonic dystrophy, type 2 (HRC) Expected: 10/09/2024, Expires: 01/07/2025 AST Lab Routine Myotonic dystrophy, type 2 (HRC) Expected: 10/09/2024, Expires: 11/08/2024 Bilirubin, Total & Direct Lab Routine Myotonic dystrophy, type 2 (HRC) Expected: 10/09/2024, Expires: 11/09/2024 Complete Blood Count-No Diff Lab Routine Myotonic dystrophy, type 2 (HRC) White coat syndrome with diagnosis of hypertension (HRC) Atherosclerosis of lone pine coronary artery of lone pine heart without angina pectoris (HRC) Expected: 10/09/2024, Expires: 11/09/2024 BMP Lab Routine White coat syndrome with diagnosis of hypertension (HRC) Dilated cardiomyopathy (HRC) Atherosclerosis of [place] coronary artery of [place] heart without angina pectoris (HRC) Expected: 10/09/2024, Expires: 04/07/2025 Hgb A1C Lab Routine Screening for diabetes mellitus Expected: 10/09/2024, Expires: 01/07/2025 documented as of this encounter Visit Diagnoses Diagnosis Hyperlipidemia, unspecified hyperlipidemia type (HRC)- Primary Myotonic dystrophy, type 2 (HRC) Myotonic muscular dystrophy White coat syndrome with diagnosis of hypertension (HRC) Dilated cardiomyopathy (HRC) Other primary cardiomyopathies Atherosclerosis of lone pine coronary artery of [place] pine heart without angina pectoris (HRC) Screening for diabetes mellitus documented in this encounter Care Teams Director Cardiovascular Relationship Specialty Start Date End Date Greg Tinoco MD [address] [address] PCP - General Internal Medicine 12/07/16 documented as of this encounter
--- OUTSIDE RECORDS SUMMARY | 2024-10-12 11:43 | XMS_ITS | Encounter Summary ---
Author Organization [facility] Address [address], [place] [address] Care Team Providers Care Skilled Trades Teacher Name Role Phone Greg Tinoco MD Primary Care Provider [phone] Encounter Details Date Type Department Care Team (Late st Contact Info) Description 08/04/2015 Same Day Surgery Ophthalmology at [address] [id number] Brook Krueger MD [address] [address] Social History Tobacco Use Types Packs/Day Years Used Date Smoking Tobacco: Never Smokeless Tobacco: Never Alcohol Use Standard Drinks/Week Comments No 1 (1 standard drink = 0.6 oz pur e alcohol) Sex and Gender Information Value Date Recorded Sex Assigned at Not on file Legal Sex Male 4:08 AM CDT Gender Identity Not on file Sexual Orientation Not on file 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 Not on file Not on file documented as of this encounter Plan of Treatment Upcoming Encounters Date Type Department Care Team (Late Contact Info) Description 04/19/2025 8:50 AM CREDENTIALS SPECIALIST Appointment [facility] Dental [facility] [address] [place] [phone] Latonia Santos, [facility] [address] [facility] [place] [address] documented as of this encounter Visit Diagnoses Not on filedocumented in this encounter Additional Health Concerns Infection Onset Date Last Indicated Resolved Time R/O COVID19 04/07/2022 04/07/2022 04/07/2022 4:01 PM CREDENTIALS SPECIALIST documented as of this encounter Care Teams Skilled Trades Teacher Relationship Specialty Start Date End Date Greg Tinoco MD [address] [place] [address] PCP - General Internal Medicine 12/07/16 documented as of this encounter
--- OUTSIDE RECORDS SUMMARY | 2024-10-12 11:43 | XMS_ITS | Encounter Summary ---
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 Not on file Not on file documented as of this encounter Progress Notes * Inactive, Provider - 02/08/2012 12:00 AM CDT documented in this encounter Plan of Treatment Upcoming Encounters Date Type Department Care Team (Late st Contact Info) Description 04/19/2025 8:50 AM GROUP FITNESS ASSISTANT DEPARTMENT HEAD Appointment [facility] Dental [facility] [address] [place] [address] Latonia Santos, [facility] [address] [place] [address] documented as of this encounter Visit Diagnoses Not on filedocumented in this encounter Additional Health Concerns Infection Onset Date Last Indicated Resolved Time R/O COVID19 04/07/2022 04/07/2022 04/07/2022 4:01 PM GROUP FITNESS ASSISTANT DEPARTMENT HEAD documented as of this encounter Care Teams Health Care Sanitary Technician Relationship Specialty Start Date End Date Greg Tinoco MD [address] [place] [address] PCP - General Internal Medicine 12/07/16 documented as of this encounter
--- OUTSIDE RECORDS SUMMARY | 2024-10-12 11:43 | XMS_ITS | Encounter Summary ---
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 Not on file Not on file documented as of this encounter Progress Notes * Inactive, Provider - 11/09/2011 12:00 AM CDT documented in this encounter Plan of Treatment Upcoming Encounters Date Type Department Care Team (Late st Contact Info) Description 04/19/2025 8:50 AM DISTRIBUTION FIELD ENGINEER Appointment [facility] Dental [facility] [address] [place] [address] Latonia Santos, [facility] [address] [place] [address] documented as of this encounter Visit Diagnoses Not on filedocumented in this encounter Additional Health Concerns Infection Onset Date Last Indicated Resolved Time R/O COVID19 04/07/2022 04/07/2022 04/07/2022 4:01 PM DISTRIBUTION FIELD ENGINEER documented as of this encounter Care Teams Open Developer Operator Relationship Specialty Start Date End Date Greg Tinoco MD [address] [place] [address] PCP - General Internal Medicine 12/07/16 documented as of this encounter
--- OUTSIDE RECORDS SUMMARY | 2024-10-12 11:43 | XMS_ITS | Encounter Summary ---
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 Not on file Not on file documented as of this encounter Plan of Treatment Upcoming Encounters Date Type Department Care Team (Late st Contact Info) Description 04/19/2025 8:50 AM JACQUARD CARD CUTTER Appointment [facility] [place] [address] [place] [phone] Latonia Santos, [facility] [address] [place], [place] [phone] documented as of this encounter Visit Diagnoses Not on filedocumented in this encounter Additional Health Concerns Infection Onset Date Last Indicated Resolved Time R/O COVID19 04/07/2022 04/07/2022 04/07/2022 4:01 PM JACQUARD CARD CUTTER documented as of this encounter Care Teams Wood Mill Supervisor Relationship Specialty Start Date End Date Greg Tinoco MD [address] [place] [address] PCP - General Internal Medicine 12/07/16 documented as of this encounter
[2024-10-12] MEDS: CEFAZOLIN 1 GM inj 2 GM IVP (12:05)
[2024-10-12] MEDS: TETANUS/DIPHTH/PERTUSSIS 0.5 ML SYRINGE IM (12:47)
--- NOTE | 2024-10-12 12:51 | P.ORCN_ITS ---
History of Present Illness HPI Date Seen: 10/12/24 Chief complaint: Lost 1/2 finger tip Narrative: Marcel is a 60-year-old male presenting to the emergency department for an injury to his left long finger distal phalanx. He states he was using a router (Flynn) when it caught the ulnar aspect of the finger tip. This happened shortly prior to arrival. States he has a baseline tremor to that hand (essential tremor). Denies any other injuries. At the time of my interview with the patient his finger has been numb with a digital block and thus no pain. Prior to this, he reports that with significant pain. He is able to actively flex and extend the D IP joint. 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 - Epithelial (juvenile) corneal dystrophy, unspecified eye (ICD-10) PVD (posterior vitreous detachment), right eye ?H43.811 - Vitreous degeneration, right eye (ICD-10) Macular pucker ?H35.379 - Puckering of macula, unspecified eye (ICD-10) Nuclear sclerosis ?H25.10 - Age-related nuclear cataract, unspecified eye (ICD-10) Myotonic dystrophy, 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 - Myotonic muscular dystrophy (ICD-10) Obstructive sleep apnea ?G47.33 - Obstructive sleep apnea (adult) (pediatric) (ICD-10) Hyperlipidemia ?E78.5 - Hyperlipidemia, unspecified (ICD-10) Acid reflux ?K21.9 - Gastro-esophageal reflux disease without esophagitis (ICD-10) Surgical History (Updated 10/12/24 @ 12:58 by Lazara Acevedo ~ COLLECTION SUPPORT SPECIALIST, COLLECTION SUPPORT SPECIALIST) Cataract ?H26.9 - Unspecified cataract (ICD-10) History of appendectomy ?Z90.49 - Acquired absence of other specified parts of digestive tract (ICD- 10) H/O spinal fusion ?Z98.1 - Arthrodesis status (ICD-10) Family History (Updated 10/12/24 @ 13:01 by Lazara Acevedo ~ [facility], COLLECTION SUPPORT SPECIALIST) Mother Myotonic dystrophy Diabetes High blood pressure Heart disease Stroke Father Hyperlipidemia Coronary artery disease Aunt Bipolar 1 disorder Uncle Stroke Social History Smoking Status: Never smoker Do you use any of these nicotine containing products: None How often do you have a drink containing alcohol: never AUDIT-C Alcohol total score: 0 Non-prescribed substance use: denies use Meds Home Medications and Allergies Home Medications ?Medication ?Instructions ?Recorded ?Confirmed ?Type cephalexin 500 mg capsule 500 mg PO QID #20 caps 10/12 Rx evolocumab 140 mg/mL subcutaneous mg subcut 10/12/24 0 10/12/24 History pen injector (Pete Atkins) fluticasone propionate 50 intranasal 10/12/24 10/12/24 History mcg/actuation nasal spray,suspension losartan 50 mg tablet 50 mg PO BID 10/12/24 History oxycodone 5 mg tablet 5 mg PO Q6H PRN pain #12 tab s 10/12/24 Rx pantoprazole 40 mg tablet,delayed 40 mg PO DAILY 10/1210/12/24 History release pantoprazole in 0.9% sod chlor IV 10/12/24 History sildenafil (pulm.hypertension) 20 20 mg PO DAILY 10/1210/12/24 History mg tablet Allergies Allergy/AdvReac Type Severity Reaction Status Date / Time simvastatin AdvReac pain Verified 10/12/24 10:59 Ortho Exam Narrative Exam Narrative: He is sitting on the edge of the hospital bed today. Cooperative with the exam. Somewhat frustrated by the circumstances conversation. Left hand exam shows the following: Traumatic partial amputation to the ulnar aspect of the long finger along the distal phalanx. It involves essentially 1/3 of the ulnar nail plate and that portion of the soft tissue and bone as well. There is bone exposed. There is active bleeding at this time. His sensation is intact on the radial side of 1 finger but naturally abnormal in the ulnar side. Again, actively able to flex and extend the IP joint appropriately. The remaining finger tip is otherwise pink, warm, brisk capillary refill. There is no other trauma remaining digits. Const Vital Signs, click to edit/add: Vital Signs - 24 hr 10/12/24 10:49 Temperature 97.4 F L Pulse Rate [Pulse Oximeter] 76 Respiratory Rate 22 Blood Pressure [Right Upper Arm] 142/92 H Pulse Oximetry 96 Oxygen Delivery Method Room Air Results Diagnostic results Additional Comments: Three views left 3rd finger from [facility] dated 10/12/2024 were ordered by different provider and reviewed by me. This demonstrates clear traumatic injury to the distal phalanx of this left long finger ulnar aspect. There is also complete loss of approximately 90% of the distal half of the bone with only a small shell of bone remaining on the radial side. There is a fracture that extends into the DIP joint through the base of the distal phalanx. There is a large soft tissue envelope loss over the ulnar half of the digit based on these radiographs. No other acute pathology evident. No signs of AVN. Assessment and Plan Assessment and plan (1) Avulsion of fingertip: Status: Acute (2) Open fracture of phalanx of left middle finger: Status: Acute Plan I had a good conversation today with the patient and his . I helped him understand his pathology. I showed him the radiographs to help him better understand the extent of his involvement in fracture. We discussed the various options which include watchful waiting, healing by secondary intent, revision amputation to this left long finger (whether that is acute/today, subacute/in a few weeks, or more chronic/far the road). 3 was helpful for him to see mg and better understand his pathology. He is inclined to simply dress the wound today and follow up in clinic for ongoing min checks. 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 However, I think it is important to monitor his wound. Therefore, I would him to be seen back in our clinic (PA visit) in approximately 3-5 days then again likely 1 week later. Dressing removal (likely has to soak it), and anticipate re dressing it with Xeroform, Telfa, a 4 x 4, and Coban. He would benefit from oral antibiotics upon discharge (x5 days of Keflex). Finally, he would benefit from oral narcotics to be taken only as needed. He can certainly start with Tylenol and ibuprofen. I have coordinated care with the emergency room physician, Dr. Ricks and communicated the plan to the patient. He states understanding.
[2024-10-12 13:08] VITALS: BP 156/96; PULSE 62; RESP 16
== END 2024-10-12 13:05 | disposition home or self-care (01) ==
PROVIDERS: Emergency Provider Student in an Organized Health Care Education/Training Program
DX: S61.312A Laceration without foreign body of right middle finger with damage to nail, initial encounter (principal); W27.0XXA Contact with workbench tool, initial encounter
CPT/HCPCS: 73140; 90471; 90715; 96374; 99284; J0690